=== PATIENT | female | born 1950 | race Caucasian/White ===

== ENCOUNTER 2016-06-13 00:54 | Emergency (ER) | payer OTHER ==
[~2016-06-13] VITALS: Ht 160 cm; Wt 91.8 kg
[~2016-06-13 00:54] MED LIST: ADVAIR 250/501 DISK IH; PROBIOTIC1 EAC1 PO; PROTONIX40 MG PO; Percocet 5/325,Endoc PO; SPIRIVA1 INHALATI IH; VITAMIN B-12 IJ; Zithromax PO; predniSONE PO
[2016-06-13 01:08] VITALS: BP 141/89
[2016-06-13 01:46] LABS: HEMATOCRIT 45.7 % (36.0-46.0); MCH 29.1 PG (29.0-34.0); MCHC 33.3 G/DL (30.0-36.0); MCV 87.4 FL (83-99); MEAN PLAT.VOLUME 11.6 uM^3 (9.5-12.4); PLATELET COUNT 261 K/uL (156-360); RBC DIS.WIDTH-CV 13.8 % (11.8-14.6); RED BLOOD COUNT 5.23 M/uL (3.80-5.20); WHITE BLOOD COUNT 13.2 K/uL (4.1-10.2)
[2016-06-13 01:57] LABS: CHLORIDE 106 mEq/L (99-109); POTASSIUM 4.2 mEq/L (3.7-5.4); SODIUM 138 mEq/L (136-147)
[2016-06-13 02:00] LABS: GLUCOSE 185 mg/dL (70-99)
[2016-06-13 02:01] LABS: ANION GAP 9 MEQ/L (2-14)
[2016-06-13 02:02] LABS: TOTAL BILIRUBIN 0.4 mg/dL (0.0-1.0)
[2016-06-13 02:03] LABS: ALKALINE PHOSPHATASE 140 IU/L (3-129); GFR ESTIMATE (CALCULATED) > 59 mL/min/
[2016-06-13 02:05] LABS: UREA NITROGEN (BUN) 19 mg/dL (9-23)
[2016-06-13 02:07] LABS: LIPASE 40 U/L (1.0-51.0)
[2016-06-13 02:42] LABS: ADD MIUA? YES; BILIRUBIN NEGATIVE; BLOOD MODERATE; COLOR YELLOW ((YELLOW)); GLUCOSE (STRIP) NEGATIVE; KETONES NEGATIVE; LEUKOCYTES NEGATIVE; NITRITE NEGATIVE; PH, URINE 5.5 (5-8); PROTEIN (STRIP) TRACE; SPECIFIC GRAVITY 1.026 (1.000-1.030)
[2016-06-13 03:07] LABS: BACTERIA 1+ /HPF; CALCIUM OXALATE CRYSTALS 2+ /HPF; CASTS PRESENT /LPF; CRYSTALS PRESENT; EPITHELIAL CELLS RARE /HPF; FINE GRANULAR CASTS 0-5 /LPF; MUCUS NONE SEEN /LPF; UCUL ADDED? NO; WHITE BLOOD CELLS 0-5 /HPF (0-5)
== END 2016-06-13 03:54 | disposition left against medical advice (07) ==
LOC: EME 00:54
DX: R10.9 Unspecified abdominal pain (principal); Z53.21 Procedure and treatment not carried out due to patient leaving prior to being seen by health care provider; R11.2 Nausea with vomiting, unspecified; J44.9 Chronic obstructive pulmonary disease, unspecified
CPT/HCPCS: 80053; 81003; 83690; 85027